=== PATIENT | male | born 1990 | race Two or more races ===

== ENCOUNTER 2024-02-04 00:48 | Emergency (ER) | payer MEDICAID, SELFPAY ==
[2024-02-04 01:02] VITALS: BP 116/70; PULSE 115; RESP 19; TEMP 36.8; O2SAT 96
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
[2024-02-04] MEDS: OXYMETAZOLINE NAS SPRY 0.05% 15 ML BTL NASAL (04:53)
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
[2024-02-04 05:00] VITALS: BP 120/60; PULSE 99; RESP 19; TEMP 36.7; O2SAT 98
== END 2024-02-04 05:01 | disposition home or self-care (01) ==
PROVIDERS: Emergency Provider Emergency Medicine
DX: S02.2XXA Fracture of nasal bones, initial encounter for closed fracture (principal); S01.21XA Laceration without foreign body of nose, initial encounter; Y04.0XXA Assault by unarmed brawl or fight, initial encounter
CPT/HCPCS: 12011; 70450; 70486; 99284; A9270